=== PATIENT | female | born 1980 | race Caucasian/White ===

== ENCOUNTER 2018-02-07 00:01 | Emergency (ER) | payer OTHER, SELFPAY ==
[2018-02-07 00:03] VITALS: BP 145/122; PULSE 216; RESP 14; TEMP 36.1; O2SAT 99; BMI 24.7
--- NOTE | 2018-02-07 00:14 | EKG12_ITS ---
Test Reason : REPEAT Blood Pressure : / mmHG Vent. Rate : 104 BPM Atrial Rate : 104 BPM P-R Int : 162 ms QRS Dur : 110 ms QT Int : 336 ms P-R-T Axes : 045 051 055 degrees QTc Int : 441 ms Sinus tachycardia Otherwise normal ECG Confirmed by JIN STEVENS, JENNY ([id number]), copy editor GERRY SURESH ([id number]) on 02/09/2018 1:26:34 PM Referred By: ISHAN Confirmed By:JENNY ABDI MD
--- NOTE | 2018-02-07 00:15 | EKG12_ITS ---
Test Reason : PALPITATIONS Blood Pressure : / mmHG Vent. Rate : 215 BPM Atrial Rate : 214 BPM P-R Int : 000 ms QRS Dur : 090 ms QT Int : 212 ms P-R-T Axes : 000 053 102 degrees QTc Int : 401 ms Supraventricular tachycardia Marked ST abnormality, possible inferolateral subendocardial injury Abnormal ECG Confirmed by JIN STEVENS, JENNY ([id number]), sports editor GERRY SURESH ([id number]) on 02/09/2018 1:26:48 PM Referred By: ISHAN Confirmed By:JENNY ABDI MD
--- NOTE | 2018-02-07 00:15 | ED.VISSUMM ---
- ER Visit Summary Date of Service: 02/07/18 Chief Complaint: Palpitations History of Present Illness: The patient is a 38 F was out drinking alcohol with some friends tonight when she suddenly felt herself have racing heartbeat palpitations that feels similar to when she was in [place] last year. Started about 2 hours ago. No lightheadedness or near syncopal episodes. Mild upper chest heaviness and mild dyspnea. No recent illnesses, travel, leg pain or swelling, or injury. Physical Examination: Tachycardic over 200. Otherwise vital signs are unremarkable. Keenly alert, conversive, nontoxic and well-appearing. Lungs are clear. Equal pulses bilateral upper extremities. No calf pain/tenderness or pedal edema. Test Results: EKG consistent with narrow complex SVT at 215. No acute injury pattern. Emergency Department Course and Treatment: Regular vagal maneuver was not effective, but with modified vagal maneuver, she cardioverted without complication. Asymptomatic after cardioversion. Repeat EKG is normal with a sinus rhythm at 104 in no acute ischemic abnormalities. Observed without recurrence. Treatment Plan: Cardiology follow-up after the weekend Disposition: Discharge home Impression: Supraventricular tachycardia This note was generated with [employer] dictation software. It may contain incorrect words, spelling, and punctuation that were not noted in review of the chart prior to signing ED Disposition - Plan for ED Patient: Disposition: Home or Assisted Living Chief Complaint: Palpitations Instructions: ED Tachycardia Pat PSVT Referrals: Gerardo Morel MD [STAFF PHYSICIAN] - 5-7 Days
--- NOTE | 2018-02-07 00:19 | ED.RN ---
VAGAL MANEUVER PERFORMED BY PT HEART RATE FROM 218 TO 108.
[2018-02-07 01:02] VITALS: BP 138/74; PULSE 109; RESP 16; O2SAT 100
== END 2018-02-07 01:03 | disposition home or self-care (01) ==
PROVIDERS: Emergency Provider Emergency Medicine; Family Provider Nurse Practitioner Family; PCP Nurse Practitioner Family
DX: I47.1 Supraventricular tachycardia (principal)
CPT/HCPCS: 93005; 99282; J7030; A4216; J0153

== ENCOUNTER → 2018-02-18 15:41 | Outpatient (CLI) | payer OTHER, SELFPAY ==
[2018-02-18 16:59] LABS: Absolute Lymphocyte Count 1.58 X10^3/ul (0.83-4.51); Absolute Neutrophil Count 4.3 X10^3/uL (2.0-7.7); Basophil# 0.05 X10^3/uL; Basophil% 0.8 % (0-1); Eosinophil# 0.09 X10^3/uL; Eosinophils% 1.4 % (0-5); Hematocrit 40.5 % (37-47); Hemoglobin 13.4 g/dl (12.0-15.0); Lymphocyte # 1.58 X10^3/ul (4.0); Lymphocyte % 24.9 % (19-41); Mean Corp Hgb Conc 33.1 g/gl (32-36); Mean Corpuscular Hgb 29.5 pg (27.0-32.0); Mean Corpuscular Volume 89.2 fL (81-99); Mean Platelet Vol. 10.2 fl (6.2-12.0); Monocyte# 0.36 X10^3/uL; Monocyte% 5.7 % (0-10); Neutrophil # 4.26 X10^3/uL (2.7-7.7); Neutrophil % 67.2 % (47-70); Platelet Count 268 K/mm3 (150-450); RBC Distribution Width CV 12.8 % (11.6-14.6); RBC Distribution Width SD 41.6 fl (35.1-43.9); Red Blood Count 4.54 M/mm3 (4.2-5.4); White Blood Count 6.3 K/mm3 (4.4-11.0)
[2018-02-18 17:16] LABS: Anion Gap 6 (5-15); BUN 11 mg/dL (7-18); BUN/Creat Ratio 13.7 RATIO (10-20); Calcium,Total 9.1 mg/dL (8.5-10.1); Chloride 104 mmol/L (98-107); EST Glomerular Filtration Rate 85 mL/min (>60); Est Glom Filt Rate - Afr Amer 103 mL/min (>60); Glucose 88 mg/dL (74-106); Magnesium 2.2 mg/dL (1.6-2.6); Potassium 4.2 mmol/L (3.5-5.1); Sodium Level 138 mmol/L (136-145); Thyroid Stim Hormone (TSH) 0.66 uIU/mL (0.358-3.74)
[2018-02-18 17:19] LABS: POSITIVE COUNT NO; POSITIVE DIFFERENTIAL NO; POSITIVE MORPHOLOGY NO
== END ==
PROVIDERS: Family Provider Nurse Practitioner Family; PCP Nurse Practitioner Family; Visit Provider Internal Medicine Cardiovascular Disease
DX: I47.1 Supraventricular tachycardia (principal)
CPT/HCPCS: 36415; 80048; 83735; 84443; 85025; 93225; 93226

== ENCOUNTER 2018-12-08 15:35 | Emergency (ER) | payer OTHER, SELFPAY ==
[2018-12-08 15:36] VITALS: BP 119/71; PULSE 101; RESP 16; TEMP 36.8; O2SAT 97; BMI 20.3
--- NOTE | 2018-12-08 15:59 | RAD_ITS ---
STUDY: X-RAY CHEST REASON FOR EXAM: Female, 38 years old. Is lightheadedness. Cough. Headache. TECHNIQUE: PA and lateral views of the chest. COMPARISON: None. FINDINGS: The lungs are clear and expanded. There is no demonstrated pleural abnormality. Normal size heart. Normal mediastinum and melly. Normal visualized pulmonary arteries. Normal visualized aortic arch and descending thoracic aorta. Normal visualized thoracic spine. Normal visualized ribs, clavicles, and shoulders. There is no demonstrated abnormality of the visualized soft tissue structures of the upper abdomen. RAD/Chest PA and Lateral IMPRESSION: Normal x-ray examination of the chest. Electronically Signed: Jose David Patterson DO at 16:28 EST Tel [phone], Service support ,
[2018-12-08] MEDS: Ondansetron ODT 4 MG Tablet PO (16:05)
--- NOTE | 2018-12-08 16:17 | ED.VISSUMM ---
- ER Visit Summary Date of Service: 12/08/18 Chief Complaint: Generalized illness History of Present Illness: The patient is a 38 F presenting for evaluation secondary to generalized illness. Patient reports that over the course the last 3 days she has had generalized body aches cough nausea vomiting diarrhea and sore throat. Patient reports that she saw her primary care physician yesterday who did a strep swab and a flu swab both of which were negative. She reports that he put her on Tamiflu anyway. She states that she got 2 doses down yesterday, and today she started to have nausea and vomiting. She feels that she is getting somewhat dehydrated. She denies any lung problems or smoking. She denies any sick contacts or recent travel. Review of systems otherwise negative. Physical Examination: Vital signs are within normal limits, patient is afebrile. General: Patient is well-nourished well-developed and in no acute distress. Head: Normocephalic, atraumatic Eyes: Pupils equal round and reactive bilaterally, extra occular motion intact bialterally ENT: Moist mucous membranes, mild posterior pharyngeal erythema without any evidence of exudate posterior fullness or asymmetry Neck: Supple, mild anterior lymphadenopathy, no JVD, no meningismus CVS: Heart regular rate and rhythm, no murmurs, rubs or gallops, radial pulses 2+ bilaterally Resp: Respirations nondistressed, lung sounds clear bilaterally Abdomen: Soft, nontender, nondistended, no palpable masses, normal bowel sounds Back: Nontender Extremities: Nontender, atraumatic, active full range of motion, no peripheral edema Skin: warm, no rashes, no petechia Neuro: Alert and oriented x 4, CN 2-12 intact, no lateralizing neurological defecits Psyc: Normal affect Test Results: CXR normal, rapid strep was positive Emergency Department Course and Treatment: Patient presented secondary to generalized illness. A chest x-ray was negative flu swab was positive. Patient was treated with Zofran and passed p.o. challenge. She was given Tylenol for generalized aches. Patient was given Bicillin for treatment of her strep throat, she will be discharged with a course of Zofran. Disposition: Discharge Impression: 1. Strep pharyngitis This note was generated with [employer] dictation software. It may contain incorrect words, spelling, and punctuation that were not noted in review of the chart prior to signing ED Disposition - Plan for ED Patient: Disposition: Home or Assisted Living Chief Complaint: General Illness Diagnosis: Strep pharyngitis Instructions: ED Strep Pharyngitis Conf Prescriptions: Ondansetron [Zofran Odt] 4 mg PO Q8H PRN PRN #10 tab PRN Reason: Nausea Referrals: Cinthia Gusman, GRAIN FARMER-C [NON-STAFF] - 1 Week if not improving
--- NOTE | 2018-12-08 16:21 | ED.DCSUM_ITS ---
- ER Visit Summary Date of Service: 12/08/18 Chief Complaint: Generalized illness History of Present Illness: The patient is a 38 F presenting for evaluation secondary to generalized illness. Patient reports that over the course the last 3 days she has had generalized body aches cough nausea vomiting diarrhea and sore throat. Patient reports that she saw her primary care physician yesterday who did a strep swab and a flu swab both of which were negative. She reports that he put her on Tamiflu anyway. She states that she got 2 doses down yesterday, and today she started to have nausea and vomiting. She feels that she is getting somewhat dehydrated. She denies any lung problems or smoking. She denies any sick contacts or recent travel. Review of systems otherwise negative. Physical Examination: Vital signs are within normal limits, patient is afebrile. General: Patient is well-nourished well-developed and in no acute distress. Head: Normocephalic, atraumatic Eyes: Pupils equal round and reactive bilaterally, extra occular motion intact bialterally ENT: Moist mucous membranes, mild posterior pharyngeal erythema without any evidence of exudate posterior fullness or asymmetry Neck: Supple, mild anterior lymphadenopathy, no JVD, no meningismus CVS: Heart regular rate and rhythm, no murmurs, rubs or gallops, radial pulses 2+ bilaterally Resp: Respirations nondistressed, lung sounds clear bilaterally Abdomen: Soft, nontender, nondistended, no palpable masses, normal bowel sounds Back: Nontender Extremities: Nontender, atraumatic, active full range of motion, no peripheral edema Skin: warm, no rashes, no petechia Neuro: Alert and oriented x 4, CN 2-12 intact, no lateralizing neurological defecits Psyc: Normal affect Test Results: CXR normal, rapid strep was positive Emergency Department Course and Treatment: Patient presented secondary to generalized illness. A chest x-ray was negative flu swab was positive. Patient was treated with Zofran and passed p.o. challenge. She was given Tylenol for generalized aches. Patient was given Bicillin for treatment of her strep throat, she will be discharged with a course of Zofran. Disposition: Discharge Impression: 1. Strep pharyngitis This note was generated with [employer] dictation software. It may contain incorrect words, spelling, and punctuation that were not noted in review of the chart p rior to signing ED Disposition - Plan for ED Patient: Disposition: Home or Assisted Living Chief Complaint: General Illness Diagnosis: Strep pharyngitis Instructions: ED Strep Pharyngitis Conf Prescriptions: Ondansetron [Zofran Odt] 4 mg PO Q8H PRN PRN #10 tab PRN Reason: Nausea Referrals: Cinthia Gusman, L[employer] VISION THERAPIST-C [NON-STAFF] - 1 Week if not improving
[2018-12-08] MEDS: Acetaminophen 500 MG Tablet 1000 MG PO (16:28)
[2018-12-08] MEDS: Penicillin G Benzathine 1.2 MU/2 ML Syringe IM (16:54)
[2018-12-08 17:16] VITALS: TEMP 37.2
--- OUTSIDE RECORDS SUMMARY | 2019-02-09 18:46 | XMS RPT_ITS ---
:1980 Author Organization OHIP Support Name Relationship Address Phone TAMAR Unavailable [address] + [place] [address] VERONIQUE YOUNG Unavailable Unavailable + [place] [address] BOGCO Unavailable [address] + [place] [address] TONIO MANDEL Unavailable [address] + [place] [address] MINISTERIOPHAMQUETA Unavailable [place] [address] VERONIQUE YOUNG Unavailable [address] [place] [address] VERONIQUE YOUNG Unavailable [address] [place] [place] [address] TONIO MANDEL Unavailable Unavailable + MINISTERIO QUETA Unavailable Un[place] [address] BOGCO Unavailable [address] + [place] [address] TONIO MANDEL Unavailable [address] + [place] [address] BOGCO Unavailable [address] + [place] [address] TONIO MANDEL Unavailable [address] + [place] [address] BOGCO Unavailable [address] + [place] [address] TONIO MANDEL Unavailable [address] + [place] [address] BOGCO Unavailable [address] + [place] [address] TONIO MANDEL Unavailable [address] + [place] [address] BOGCO Unavailable [address] + [place] [address] TONIO MANDEL Unavailable [address] [facility] + [place] [address] Care Team Providers Name Role Phone IZZY ORTA Admitting Unavailable IZZY ORTA Attending Unavailable ADRIEL, GERARDO S Referring Unavailable MARCH, EDDA E Attending Unavailable SELF, SELF Referring Unavailable MARIA DE JESUS GRAY Primary Care Unavailable MARIA DE JESUS GRAY Attending Unavailable MELLISSA CARY Attending Unavailable JOSIE HILTON Attending Unavailable Referred, Self Attending Unavailable [facility] ATTORNEY, Cinthia Primary Care Unavailable Lewis Barger Attending Unavailable Darion Hernandez Primary Care Unavailable Adriel, [place] Attending Unavailable [facility] C[facility] ATTORNEY, Cinthia Referring Unavailable [facility] HE[facility] CARE ATTORNEY, Cinthia Primary Care Unavailable LAYA OLMSTEAD Attending Unavailable Adriel, Gerardo Attending Unavailable [facility] C[facility] ATTORNEY, Cinthia Referring Unavailable [facility] C[facility] ATTORNEY, Cinthia Primary Care Unavailable Adriel, [place] Attending Unavailable [facility] C[facility] ATTORNEY, Cinthia Primary Care Unavailable Adriel, [place] Referring Unavailable Adriel, Gerardo Attending Unavailable PROBLEMS PROBLEMS DATE TYPE CONDITION / CODE ATTENDING STATUS SOURCE 08/10/2018 Admitting Supraventricular MARCH, EDDA Raymundo Active [facility] diagnosis tachycardia / University I47.1(ICD-10) [facility] Repository 02/18/2018 Unknown I47.1 - Adriel, Gerardo Active [facility] tachycardia / Hospital I47.1(ICD-10) Repository PROCEDURES PROCEDURES No Procedure Records FoundRESULTS RESULTS PROGRESS Observed: 12/10/2018 Status: COMPLETED Source: [place] 8:39 AM [facility] REPOSITORY HNO ID: [id number] Author: Josie Hilton Service: (none) Author Type: Physician Type: Progress Notes Filed: 12/10/2018 9:22 AM Note Text: Queta Mandel is a 38 year old who presents for her annual gynecologic exam without complaints. Menses: cycles every 28-30 days and 4-5 days of flow. 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 She has 3 children. Her oldest is in 3rd grade at [employer]. 2nd child will start there next year. 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 No bloating, early satiety, indigestion, or increased flatulence. Bladder: No dysuria, gross hematuria, urinary frequency, urinary urgency, or incontinence. Breast: No breast lumps, nipple d/c, overlying skin changes, redness or skin retraction. Allergies and current medication updated:Yes EXAM: There were no vitals taken for this visit. GENERAL: pleasant, female in no apparent distress BREAST: soft, non-tender, symmetric, no dominant mass, normal nipple-areolar complex, no lymphadenopathy and no nipple discharge CHEST: Normal inspiratory effort ABDOMEN: soft, non-tender and no masses PELVIC: external genitalia normal, normal Bartholin's glands, urethra, [place]'s glands, no vulvar lesions, no cervical lesions, good vaginal support, physiologic discharge present, normal appearing perineal body and perianal region BIMANUAL: uterus normal size, shape and consistency, no adnexal masses and non-tender RECTOVAGINAL: deferred. NEURO: alert and oriented x3,exam grossly non-focal EXTREMITIES: normal ASSESSMENT/PLAN: 1) Health maintenance: Pap done with HPV. Mammogram starting age 40. Nutrition, exercise and routine health maintenance exams reviewed. 2) Contraception: tubal ligation. 3) Follow up one year or sooner as needed Josie Hilton MD CNOV Observed: 12/10/2018 Status: COMPLETED Source: [place] 8:35 AM [facility] REPOSITORY Office Visit ([facility]) QUETA MANDEL ([id number]) 1980 F Date Time Provider Department 12/10/18 8:35 AM JOSIE HILTON During your visit today, we recorded the following information about you: Blood pressure Weight Height Last Period 61.3 kg 1.676 m 11/30/18 Josie Hilton MD 12/10/2018 9:22 AM Signed Quetalissa Mandel is a 38 year old who presents for her annual gynecologic exam without complaints. Menses: cycles every 28-30 days and 4-5 days of flow. 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 She has 3 children. Her oldest is in 3rd grade at [employer]. 2nd child will start there next year. 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 No bloating, early satiety, indigestion, or increased flatulence. Bladder: No dysuria, gross hematuria, urinary frequency, urinary urgency, or incontinence. Breast: No breast lumps, nipple d/c, overlying skin changes, redness or skin retraction. Allergies and current medication updated:Yes EXAM: There were no vitals taken for this visit. GENERAL: pleasant, female in no apparent distress BREAST: soft, non-tender, symmetric, no dominant mass, normal nipple-areolar complex, no lymphadenopathy and no nipple discharge CHEST: Normal inspiratory effort ABDOMEN: soft, non-tender and no masses PELVIC: external genitalia normal, normal Bartholin's glands, urethra, [place]'s glands, no vulvar lesions, no cervical lesions, good vaginal support, physiologic discharge present, normal appearing perineal body and perianal region BIMANUAL: uterus normal size, shape and consistency, no adnexal masses and non-tender RECTOVAGINAL: deferred. NEURO: alert and oriented x3,exam grossly non-focal EXTREMITIES: normal ASSESSMENT/PLAN: 1) Health maintenance: Pap done with HPV. Mammogram starting age 40. Nutrition, exercise and routine health maintenance exams reviewed. 2) Contraception: tubal ligation. 3) Follow up one year or sooner as needed Josie Hilton MD Referring Provider: SELF [[id number]] Allergies As of Date: 12/10/2018 Noted Allergy Reaction SULFA (SULFONAMIDE ANTIBIOTICS) 09/25/2010 16 - Unknown Date Reviewed: 12/10/2018 Reviewed by: Josie Hilton - Fully Assessed Reason for Visit: Well Woman [[id number]] Primary Visit Diagnosis:Encounter for gynecological examination (general) (routine) without abnormal findings [Z01.419] Other Visit Diagnoses:Screening for cervical cancer [Z12.4] Encounter for screening for human papillomavirus (HPV) [Z11.51] Order(s):PAP FLUID CERVICAL SCREENING [2308244] Order #: [id number] Prescriptions as of 12/10/2018 Sig: ACYCLOVIR 400 MG TABLET Take 1 tablet by mouth twice * Problem List As Of Date 12/10/2018 Noted Resolved Depression [F32.9] INVALID FOR* SARBJIT (generalized anxiety disorder) [F41.1] INVALID FOR* SVT (supraventricular tachycardia) (HCC) [I47.1]INVALID FOR* More... Medications Discontinued During This Encounter sertraline (ZOLOFT) 50 mg tablet 45 t* 3 06/09/2018 12/10/2018 Route: ORAL Sig: Take 1 tablet by mouth once daily. Patient not taking: Reported on 12/10/2018 Disc: Reason for discontinue is not on file. hydrOXYzine HCl (ATARAX) 25 mg tablet 45 t* 1 06/09/2018 12/10/2018 Route: ORAL Sig: Take 1 tablet by mouth every 4 hours as needed. Patient not taking: Reported on 12/10/2018 Disc: Reason for discontinue is not on file. fluticasone (FLONASE) 50 mcg/actuati* 1 Angel* 0 12/30/2017 12/10/2018 Route: EACH NOSTRIL Sig: Use 2 Sprays in each nostril once daily. Rinse mouth after use. Patient not taking: Reported on 07/29/2018 Disc: Reason for discontinue is not on file. meclizine (ANTIVERT) 25 mg tab 12 t* 0 12/30/2017 12/10/2018 Route: ORAL Sig: Take 1 tablet by mouth every 6 hours as needed (dizziness). Patient not taking: Reported on 07/29/2018 Disc: Reason for discontinue is not on file. Disposition: Return in 1 year (on 12/10/2019) for Annual Exam. Follow-up and Disposition History Recorded Encounter Status:Closed by JOSIE HILTON MD on 12/10/18 HPV W/GENOTYPE Collected: 12/10/2018 Status: F Source: [place] 3:29 AM [facility] REPOSITORY TYPE CODE TESTS RESULT OUT OF RANGE REFERENCE UNITS LAB HPVT16 Abnormal HPV HighRisk Positive for Alert Type 16 HPV DNA high risk type 16 by PCR LAB HPVT18 HPV HighRisk Negative for Type 18 HPV DNA high risk type 18 by PCR. LAB HPVHRO HPV HighRisk Negative for Other HPV DNA high risk types: 31,33,35,39,4 5,51,52,56,58 ,59,66,68 by PCR. Result Comment: This test was developed and its performance characteristics determined by [facility] [place] ([facility]). It has not been cleared or approved by the FDA. -[facility] is regulated under CLIA as qualified to perform high-complexity testing. This test is used for clinical purposes. It should not be regarded as inv estigational or for research. Performed By: #### HPVHRR #### [facility] [address] [place], [place] [address] EMERGENCY DEPARTMENT Observed: 12/09/2018 Status: F Source: [place] SUMMARY 12:14 AM [facility] REPOSITORY [facility] Medical Records Department [address] [place] [address] Emergency Department Summary 12/08/18 1617 MR#: [id number] Acct: [id number] Name: QUETA MANDEL Rep #: [id number] : 1980 38 From: Lewis Barger MD PCP: Darion Hernandez MD Status: DEP ER - ER Visit Summary Date of Service: 12/08/18 Chief Complaint: Generalized illness History of Present Illness: The patient is a 38 F presenting for evaluation secondary to generalized illness. Patient reports that over the course the last 3 days she has had generalized body aches cough nausea vomiting diarrhea and sore throat. Patient reports that she saw her primary care physician yesterday who did a strep swab and a flu swab both of which were negative. She reports that he put her on Tamiflu anyway. She states that she got 2 doses down yesterday, and today she started to have nausea and vomiting. She feels that she is getting somewhat dehydrated. She denies any lung problems or smoking. She denies any sick contacts or recent travel. Review of systems otherwise negative. Physical Examination: Vital signs are within normal limits, patient is afebrile. General: Patient is well-nourished well-developed and in no acute distress. Head: Normocephalic, atraumatic Eyes: Pupils equal round and reactive bilaterally, extra occular motion intact bialterally ENT: Moist mucous membranes, mild posterior pharyngeal erythema without any evidence of exudate posterior fullness or asymmetry Neck: Supple, mild anterior lymphadenopathy, no JVD, no meningismus CVS: Heart regular rate and rhythm, no murmurs, rubs or gallops, radial pulses 2+ bilaterally Resp: Respirations nondistressed, lung sounds clear bilaterally Abdomen: Soft, nontender, nondistended, no palpable masses, normal bowel sounds Back: Nontender Extremities: Nontender, atraumatic, active full range of motion, no peripheral edema Skin: warm, no rashes, no petechia Neuro: Alert and oriented x 4, CN 2-12 intact, no lateralizing neurological defecits Psyc: Normal affect Test Results: CXR normal, rapid strep was positive Emergency Department Course and Treatment: Patient presented secondary to generalized illness. A chest x-ray was negative flu swab was positive. Patient was treated with Zofran and passed p.o. challenge. She was given Tylenol for generalized aches. Patient was given Bicillin for treatment of her strep throat, she will be discharged with a course of Zofran. Disposition: Discharge Impression: 1. Strep pharyngitis This note was generated with [employer] dictation software. It may contain incorrect words, spelling, and punctuation that were not noted in review of the chart prior to signing ED Disposition - Plan for ED Patient: Disposition: Home or Assisted Living Chief Complaint: General Illness Diagnosis: Strep pharyngitis Instructions: ED Strep Pharyngitis Conf Prescriptions: Ondansetron [Zofran Odt] 4 mg PO Q8H PRN PRN #10 tab PRN Reason: Nausea Referrals: Cinthia Gusman, [facility] [NON-STAFF] - 1 Week if not improving What to do if you have Problems For any increased pain, shortness of breath, bleeding, nausea or vomiting, chest pain, or any unexpected problems, contact your Primary Care Provider. Call [facility] ([phone]) or report to the closest Emergency Room. Call 911 if necessary. 12/09/18 0014 <Electronically signed by Lewis Barger MD> Date Lewis Barger MD Cosigner Signature (If Indicated): Date CC: Darion Hernandez MD Observed: 12/08/2018 Status: F Source: [place] STREP A (THROAT 4:05 PM [facility] RAPID RIRI) REPOSITORY Order Date: 12/08/18 CRITICAL VALUE VERIFIED. CALLED TO Sandra SHANKAR 12/08/18 [address]s. RESULTS READ BACK BY Sandra SHANKAR . Strep A Rapid Rapid Strep A Screen POSITIVE A Disk (Conf. Cult) Test Not Performed : All NEGATIVE screens will be confirmed with a culture. ORGANISM 1: Streptococcus group A Performed By: #### [id number] #### [facility] [address] [place], [address] CHEST PA AND LATERAL Observed: 12/08/2018 Status: F Source: [place] 4:00 PM [facility] REPOSITORY [facility] Imaging Services [address] [place] [address] Chest PA and Lateral MR#: [id number] Acct: [id number] Name: QUETA MANDEL Rep #: [id number] : 1980 F 38 From: Jose David Patterson DO PCP: Darion Hernandez MD Status: REG ER Study: Chest PA and Lateral Date of Exam: 12/08/18 Exam# [id number] Ordering Dr: Lewis Barger MD STUDY: X-RAY CHEST REASON FOR EXAM: Female, 38 years old. Is lightheadedness. Cough. Headache. TECHNIQUE: PA and lateral views of the chest. COMPARISON: None. FINDINGS: The lungs are clear and expanded. There is no demonstrated pleural abnormality. Normal size heart. Normal mediastinum and melly. Normal visualized pulmonary arteries. Normal visualized aortic arch and descending thoracic aorta. Normal visualized thoracic spine. Normal visualized ribs, clavicles, and shoulders. There is no demonstrated abnormality of the visualized soft tissue structures of the upper abdomen. RAD/Chest PA and Lateral IMPRESSION: Normal x-ray examination of the chest. Electronically Signed: Jose David Patterson DO at 16:28 EST Tel [phone], Service support , CC: Darion Hernandez MD; Lewis Barger Linux Vmware Administrator: Signed PROGRESS Observed: 07/29/2018 Status: COMPLETED Source: [place] 9:35 [facility] REPOSITORY HNO ID: [id number] Author: Mellissa Cary Service: (none) Author Type: Physician Type: Progress Notes Filed: 07/29/2018 12:56 PM Note Text: I have confirmed and edited as necessary, the PFSH and ROS obtained by others. Examined patient and confirmed zuluaga findings on history and examination and ROS as noted by Nathan Nelson above. Summary of my findings and impressions are as follows: Denies nausea,vtg. No flank pain on percussion. pest of HPI, ROS and PE as per MS noted with no changes. A/P ASSESSMENT/PLAN: 1. Dysuria - ICD9: 788.1, ICD10: R30.0 (primary diagnosis) acute - Patient education for prevention given - UA DIP B/O 2. Urinary tract infection without hematuria, site unspecified - ICD9: 599.0, ICD10: N39.0 acute - UA positive for jennifer esterase - Begin treatment with Macrobid 100 mg BID for 7 days - Patient education for prevention given Advised on fluids. To call if gets a yeast infection. Mellissa Cary MD PROGRESS Observed: 07/29/2018 Status: COMPLETED Source: [place] 9:16 AM [facility] REPOSITORY HNO ID: [id number] Author: Nathan Vee MI Service: (none) Author Type: (none) Type: Progress Notes Filed: 07/29/2018 12:56 PM Note Text: Chief Complaint Patient presents with: UTI: urgency AND discomfort with urination, since last night HPI Queta Mandel is a 38 year old female who presents here today for Acute onset of dysuria and urinary frequency. Pt complains of urinary urgency and dysuria starting ~2 weeks ago. No hematuria. Pt used vspa-gyd-imtrcoc AZO, which seemed to provide temporary relief. Sxs returned yesterday. Pt reports hot and cold chills starting this morning. No fevers. No vaginal discharge or itching. Pt with distant hx of UTI, treated successfully with antibiotics in the past. Past medical history, appointments, medications, allergies reviewed. Previous Medical History PAST MEDICAL HISTORY Diagnosis Date - Anxiety - Panic attacks - SVT (supraventricular tachycardia) (HCC) Previous Surgical History PAST SURGICAL HISTORY Procedure Laterality Date - ABLATION due SVT's - BREAST BIOPSY HX - PAST SURGICAL HISTORY OF Right breast biopsy ( benign) - TUBAL LIGATION HX 2014 Family History FAMILY HISTORY Problem Relation Age of Onset - Diabetes Maternal Grandmother - Cancer Maternal Grandfather lung - Prostate Cancer Paternal Grandfather - other (Other) Other No breast/plant maintenance mechanic/colon cancer Patient Allergies ALLERGIES Allergen Reactions - Sulfa (Sulfonamide * Unknown - Zithromax [Azithrom* GI Upset Current Medications Current Outpatient Prescriptions on File Prior to Visit: hydrOXYzine HCl (ATARAX) 25 mg tablet Take 1 tablet by mouth every 4 hours as needed. sertraline (ZOLOFT) 50 mg tablet Take 1 tablet by mouth once daily. acyclovir (ZOVIRAX) 400 mg tablet Take 1 tablet by mouth twice daily. fluticasone (FLONASE) 50 mcg/actuation nasal spray Use 2 Sprays in each nostril once daily. Rinse mouth after use. (Patient not taking: Reported on 07/29/2018 ) meclizine (ANTIVERT) 25 mg tab Take 1 tablet by mouth every 6 hours as needed (dizziness). (Patient not taking: Reported on 07/29/2018 ) BENZONATATE (TESSALON ORAL) Take by mouth. dicyclomine (BENTYL) 10 mg capsule Take 1 capsule by mouth four times daily as needed (stomach cramping). LORAZEPAM ORAL Take by mouth. albuterol HFA (VENTOLIN HFA) 90 mcg/actuation inhaler Inhale 2 Puffs as instructed every 4 hours as needed for Wheezing/Shortness of Breath (persistent cough). codeine-guaiFENesin (ROBITUSSIN AC) 10-100 mg/5 mL syrup Take 5-10 mL by mouth four times daily as needed for Cough. May cause drowsiness. guaiFENesin (MUCINEX) 600 mg 12 hr tablet Take 2 tablets by mouth twice daily. benzonatate (TESSALON PERLE) 100 mg capsule Take 1 capsule by mouth three times daily as needed. ACETAMINOPHEN (TYLENOL ORAL) Take by mouth. No current facility-administered medications on file prior to visit. 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 General Appearance: Well appearing, alert, in no acute distress, well-hydrated, well nourished.. Back:No CVA tenderness. good range of motion, no muscle tenderness, no evidence of scoliosis Lungs: Lungs clear to auscultation. No wheezing, rhonchi, rales. Heart: RRR without murmur, gallop, or rubs. No ectopy. Abdomen: Normal abdominal exam, Abdomen soft, mild suprapubic tenderness. No masses, organomegaly. Health Maintenance List DTAP,TDAP,TD(1 - Tdap) due on 01/30/2000 PAP EVERY 5 YEARS due on 2011 HPV EVERY 5 YEARS due on 2011 INFLUENZA(1) due on 07/17/2018 Data reviewed A/P ASSESSMENT/PLAN: 1. Dysuria - ICD9: 788.1, ICD10: R30.0 (primary diagnosis) acute - UA positive for jennifer esterase and hematuria - Begin treatment with Macrobid 100mg BID for 7 days - Patient education for prevention given - Stay hydrated, can drink cranberry juice and continue OTC Azo. - UA DIP B/O 2. Urinary tract infection without hematuria, site unspecified - ICD9: 599.0, ICD10: N39.0 acute Plan as above Nathan Vee CNOV Observed: 07/29/2018 Status: COMPLETED Source: [place] 8:40 AM [facility] RE[facility]IT[facility] ([id number]) 1980 F Date Time Provider Department 07/29/18 8:40 AM MELLISSA CARY During your visit today, we recorded the following information about you: Temperature Pulse Respiration Blood pressure 98.1 degrees 60/minute 16/minute 100/78 Weight Last Period 64.4 kg 07/08/18 Nathan Vee MS 07/29/2018 12:56 PM Signed Chief Complaint Patient presents with: UTI: urgency AND discomfort with urination, since last night HPI Queta Mandel is a 38 year old female who presents here today for Acute onset of dysuria and urinary frequency. Pt complains of urinary urgency and dysuria starting ~2 weeks ago. No hematuria. Pt used osgq-nyx-mpbjiaw AZO, which seemed to provide temporary relief. Sxs returned yesterday. Pt reports hot and cold chills starting this morning. No fevers. No vaginal discharge or itching. Pt with distant hx of UTI, treated successfully with antibiotics in the past. Past medical history, appointments, medications, allergies reviewed. 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 sertraline (ZOLOFT) 50 mg tablet Take 1 tablet by mouth once daily. acyclovir (ZOVIRAX) 400 mg tablet Take 1 tablet by mouth twice daily. fluticasone (FLONASE) 50 mcg/actuation nasal spray Use 2 Sprays in each nostril once daily. Rinse mouth after use. (Patient not taking: Reported on 07/29/2018 ) meclizine (ANTIVERT) 25 mg tab Take 1 tablet by mouth every 6 hours as needed (dizziness). (Patient not taking: Reported on 07/29/2018 ) BENZONATATE (TESSALON ORAL) Take by mouth. dicyclomine (BENTYL) 10 mg capsule Take 1 capsule by mouth four times daily as needed (stomach cramping). LORAZEPAM ORAL Take by mouth. albuterol HFA (VENTOLIN HFA) 90 mcg/actuation inhaler Inhale 2 Puffs as instructed every 4 hours as needed for Wheezing/Shortness of Breath (persistent cough). codeine-guaiFENesin (ROBITUSSIN AC) 10-100 mg/5 mL syrup Take 5-10 mL by mouth four times daily as needed for Cough. May cause drowsiness. guaiFENesin (MUCINEX) 600 mg 12 hr tablet Take 2 tablets by mouth twice daily. benzonatate (TESSALON PERLE) 100 mg capsule Take 1 capsule by mouth three times daily as needed. ACETAMINOPHEN (TYLENOL ORAL) Take by mouth. No current facility-administered medications on file prior to visit. 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 General Appearance: Well appearing, alert, in no acute distress, well-hydrated, well nourished.. Back:No CVA tenderness. good range of motion, no muscle tenderness, no evidence of scoliosis Lungs: Lungs clear to auscultation. No wheezing, rhonchi, rales. Heart: RRR without murmur, gallop, or rubs. No ectopy. Abdomen: Normal abdominal exam, Abdomen soft, mild suprapubic tenderness. No masses, organomegaly. Health Maintenance List DTAP,TDAP,TD(1 - Tdap) due on 01/30/2000 PAP EVERY 5 YEARS due on 2011 HPV EVERY 5 YEARS due on 2011 INFLUENZA(1) due on 07/17/2018 Data reviewed A/P ASSESSMENT/PLAN: 1. Dysuria - ICD9: 788.1, ICD10: R30.0 (primary diagnosis) acute - UA positive for jennifer esterase and hematuria - Begin treatment with Macrobid 100mg BID for 7 days - Patient education for prevention given - Stay hydrated, can drink cranberry juice and continue OTC Azo. - UA DIP B/O 2. Urinary tract infection without hematuria, site unspecified - ICD9: 599.0, ICD10: N39.0 acute Plan as above Nathan Vee MS Mellissa Cary MD 07/29/2018 12:56 PM Signed I have confirmed and edited as necessary, the PFSH and ROS obtained by others. Examined patient and confirmed zuluaga findings on history and examination and ROS as noted by Nathan Nelson above. Summary of my findings and impressions are as follows: Denies nausea,vtg. No flank pain on percussion. pest of HPI, ROS and PE as per MS noted with no changes. A/P ASSESSMENT/PLAN: 1. Dysuria - ICD9: 788.1, ICD10: R30.0 (primary diagnosis) acute - Patient education for prevention given - UA DIP B/O 2. Urinary tract infection without hematuria, site unspecified - ICD9: 599.0, ICD10: N39.0 acute - UA positive for jennifer esterase - Begin treatment with Macrobid 100 mg BID for 7 days - Patient education for prevention given Advised on fluids. To call if gets a yeast infection. Mellissa Cary MD Referring Provider: SELF [[id number]] Allergies As of Date: 07/29/2018 Noted Allergy Reaction SULFA (SULFONAMIDE ANTIBIOTICS) 09/25/2010 16 - Unknown ZITHROMAX (AZITHROMYCIN) 09/25/2010 8 - GI Upset Date Reviewed: 07/29/2018 Reviewed by: Lilia Ozuna LPN - Fully Assessed Reason for Visit: UTI [116] Cmt: urgency AND discomfort with urination, since last night Primary Visit Diagnosis:Dysuria [R30.0] Other Visit Diagnosis:Urinary tract infection without hematuria, site unspecified [N39.0] Order(s):UA DIP B/O [[id number]] Order #: [id number] nitrofurantoin monohydrate and macrocrystal (MACROBID) 100 mg capsuleTake 1 capsule by mouth twice daily with meals for 7 days.Disp: 14 capsuleRfl: 0 Prescriptions as of 07/29/2018 Sig: HYDROXYZINE HCL 25 MG TABLET Take 1 tablet by mouth every * SERTRALINE 50 MG TABLET Take 1 tablet by mouth once d* ACYCLOVIR 400 MG TABLET Take 1 tablet by mouth twice * NITROFURANTOIN MONOHYDRATE AND * Take 1 capsule by mouth twice* FLUTICASONE 50 MCG/ACTUATION * Use 2 Sprays in each nostril * Patient not taking: Reported on 07/29/2018 MECLIZINE 25 MG TABLET Take 1 tablet by mouth every * Patient not taking: Reported on 07/29/2018 Problem List As Of Date 07/29/2018 Noted Resolved Depression [F32.9] INVALID FOR* SARBJIT (generalized anxiety disorder) [F41.1] INVALID FOR* SVT (supraventricular tachycardia) ([facility]) [I47.1]INVALID FOR* More... Prescriptions ordered this encounter Disp Refills Start End NITROFURANTOIN MONOHYDRATE AND MACROCR* 14 c* 0 07/29/2018 08/05/2018 Route: ORAL Sig: Take 1 capsule by mouth twice daily with meals for 7 days. Medications Discontinued During This Encounter BENZONATATE (TESSALON ORAL) 07/29/2018 Class: Historical Med Route: ORAL Sig: Take by mouth. Disc: Course of therapy completed dicyclomine (BENTYL) 10 mg capsule 20 c* 0 02/13/2017 07/29/2018 Route: ORAL Sig: Take 1 capsule by mouth four times daily as needed (stomach cramping). Disc: Course of therapy completed LORAZEPAM ORAL 07/29/2018 Class: Historical Med Route: ORAL Sig: Take by mouth. Disc: Course of therapy completed albuterol HFA (VENTOLIN HFA) 90 mcg/* 1 In* 0 12/04/2016 07/29/2018 Class: Print RX Route: INHALATION Sig: Inhale 2 Puffs as instructed every 4 hours as needed for Wheezing/Shortness of Breath (persistent cough). Disc: Course of therapy completed codeine-guaiFENesin (ROBITUSSIN AC) * 120 * 0 12/04/2016 07/29/2018 Class: Print RX Route: ORAL Sig: Take 5-10 mL by mouth four times daily as needed for Cough. May cause drowsiness. Disc: Course of therapy completed guaiFENesin (MUCINEX) 600 mg 12 hr t* 30 t* 0 11/29/2016 07/29/2018 Route: ORAL Sig: Take 2 tablets by mouth twice daily. Disc: Course of therapy completed benzonatate (TESSALON PERLE) 100 mg * 60 c* 0 11/29/2016 07/29/2018 Route: ORAL Sig: Take 1 capsule by mouth three times daily as needed. Disc: Course of therapy completed ACETAMINOPHEN (TYLENOL ORAL) 07/29/2018 Class: Historical Med Route: ORAL Sig: Take by mouth. Disc: Course of therapy completed Disposition: Return if symptoms worsen or fail to improve. Follow-up and Disposition History Recorded Letter Text July 29, 2018 TO WHOM IT MAY CONCERN: This is to certify that Ms. Queta Mandel has been under my care for UTI and was unable to work from 07/29/2018 through 07/29/2018. Ms. Mandel may return to work on 07/30/2018 without restrictions. Sincerely yours, Mellissa Cary MD Encounter Status:Closed by MELLISSA CARY on 07/29/18 PROGRESS Observed: 06/09/2018 Status: COMPLETED Source: [place] 4:36 PM [facility] [place] REPOSITORY HNO ID: [id number] Author: Maria De Jesus Gray Service: (none) Author Type: Physician Type: Progress Notes Filed: 06/09/2018 5:30 PM Note Text: Reason for Visit Patient presents with: Establish Care: establish care Queta Mandel is a 38 year old female who presents here today for Above Complaints.. Health Maintenance DTAP,TDAP,TD(1 - Tdap) PAP EVERY 5 YEARS HPV EVERY 5 YEARS HPI Going through a divorce, stressed out, she was started on wellbutrin, but did not like it, she was on cymbalta prior to that. She does feel like she needs something to help her out feels panicked on and off. Has episodes where she feels panicked, all the time when she wakes up , living with her ex due to financial restraints. She is sleeping on the couch a lot. She has a lot of anxiety but not much of depression. Has diarrhea from soft stool. She has seen a therapist for helping her. [place] - had taken adenosine in the past No problem-specific Assessment AND Plan notes found for this encounter. 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 Pertinent Lab/Diagnostic Studies are reviewed and discussed today Current Outpatient Prescriptions: - buPROPion SR (ZYBAN SR; WELLBUTRIN SR) 150 mg 12 hr tablet - fluticasone (FLONASE) 50 mcg/actuation nasal spray - meclizine (ANTIVERT) 25 mg tab - PAROXETINE HCL (PAXIL ORAL) - BENZONATATE (TESSALON ORAL) - dicyclomine (BENTYL) 10 mg capsule - LORAZEPAM ORAL - albuterol HFA (VENTOLIN HFA) 90 mcg/actuation inhaler - codeine-guaiFENesin (ROBITUSSIN AC) 10-100 mg/5 mL syrup - PARoxetine (PAXIL) 40 mg tablet - guaiFENesin (MUCINEX) 600 mg 12 hr tablet - benzonatate (TESSALON PERLE) 100 mg capsule - ACETAMINOPHEN (TYLENOL ORAL) Review of Systems CONSTITUTIONAL: No fevers, chills night sweats, unintended weight loss CARDIOVASCULAR: No chest pain, dyspnea, palpitations, orthopnea, PND, ankle edema. PULM: No dyspnea, unexplained cough. GI: No dysphagia/odynophagia, problematic reflux, constipation, diarrhea, changes in stool habits, hematochezia, melena. : No new urinary complaints, including dysuria, gross hematuria or pyuria. NEURO: No new balance problems, peripheral weakness/paresthesias or numbness of concern. Physical Exam BP 128/70 (BP Site: Left Arm, BP Position: Sitting, BP Cuff Size: Regular Adult) Pulse 88 Resp 12 Ht 170.2 cm (5' 7) Wt 67.6 kg (149 lb) LMP 05/25/2018 (Approximate) SpO2 99% BMI 23.34 kg/m? General appearance: Well appearing, alert, in no acute distress, well nourished. Skin: Skin color, texture, turgor normal, no suspicious rashes or lesions Head: Normocephalic, no masses, lesions, tenderness or abnormalities Eyes: Anicteric sclera. Pupils are equally round and reactive to light. Extraocular movements are intact. Lungs: Lungs clear to auscultation. No wheezing, rhonchi, rales Heart: RRR without murmur, gallop, or rubs. Extremities: No deformities, edema, skin discoloration, clubbing or cyanosis. Good capillary refill. ASSESSMENT/PLAN: 1. Anxiety - ICD9: 300.00, ICD10: F41.9 (primary diagnosis) Has attacks for which I am giving her some hydroxazine 2. Depression, unspecified depression type - ICD9: 311, ICD10: F32.9 - FLUOXETINE 20 MG CAPSULE 3. Encounter for gynecological examination without abnormal finding - ICD9: V72.31, ICD10: Z01.419 - Encouraged monthly BSE - Follow up for annual exam in one year. - CONSULT TO GYNECOLOGY 4. SARBJIT (generalized anxiety disorder) - ICD9: 300.02, ICD10: F41.1 5. SVT (supraventricular tachycardia) (HCC) - ICD9: 427.89, ICD10: I47.1 Procedure completed, started her on zoloft and cancelled the prozac because of the caution with arrythmias and prozax lexapro Asked her to report and stop if she feels anything with the zoloft MARIA DE JESUS GRAY MD CNOV Observed: 06/09/2018 Status: COMPLETED Source: [place] 4:00 PM [facility] REPOSITORY Office Visit (INTMWS) QUETA MANDEL ([id number]) 1980 F Date Time Provider Department 06/09/18 4:00 PM MARIA DE JESUS GRAY During your visit today, we recorded the following information about you: Pulse Respiration Blood pressure Weight 88/minute 12/minute 128/70 67.6 kg Height Last Period 1.702 m 05/25/18 MARIA DE JESUS GRAY MD 06/09/2018 5:30 PM Signed Reason for Visit Patient presents with: Establish Care: establish care Queta Mandel is a 38 year old female who presents here today for Above Complaints.. Health Maintenance DTAP,TDAP,TD(1 - Tdap) PAP EVERY 5 YEARS HPV EVERY 5 YEARS HPI Going through a divorce, stressed out, she was started on wellbutrin, but did not like it, she was on cymbalta prior to that. She does feel like she needs something to help her out feels panicked on and off. Has episodes where she feels panicked, all the time when she wakes up , living with her ex due to financial restraints. She is sleeping on the couch a lot. She has a lot of anxiety but not much of depression. Has diarrhea from soft stool. She has seen a therapist for helping her. [place] - had taken adenosine in the past No problem-specific Assessment AND Plan notes found for this encounter. 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 Pertinent Lab/Diagnostic Studies are reviewed and discussed today Current Outpatient Prescriptions: - buPROPion SR (ZYBAN SR; WELLBUTRIN SR) 150 mg 12 hr tablet - fluticasone (FLONASE) 50 mcg/actuation nasal spray - meclizine (ANTIVERT) 25 mg tab - PAROXETINE HCL (PAXIL ORAL) - BENZONATATE (TESSALON ORAL) - dicyclomine (BENTYL) 10 mg capsule - LORAZEPAM ORAL - albuterol HFA (VENTOLIN HFA) 90 mcg/actuation inhaler - codeine-guaiFENesin (ROBITUSSIN AC) 10-100 mg/5 mL syrup - PARoxetine (PAXIL) 40 mg tablet - guaiFENesin (MUCINEX) 600 mg 12 hr tablet - benzonatate (TESSALON PERLE) 100 mg capsule - ACETAMINOPHEN (TYLENOL ORAL) Review of Systems CONSTITUTIONAL: No fevers, chills night sweats, unintended weight loss CARDIOVASCULAR: No chest pain, dyspnea, palpitations, orthopnea, PND, ankle edema. PULM: No dyspnea, unexplained cough. GI: No dysphagia/odynophagia, problematic reflux, constipation, diarrhea, changes in stool habits, hematochezia, melena. : No new urinary complaints, including dysuria, gross hematuria or pyuria. NEURO: No new balance problems, peripheral weakness/paresthesias or numbness of concern. Physical Exam BP 128/70 (BP Site: Left Arm, BP Position: Sitting, BP Cuff Size: Regular Adult) Pulse 88 Resp 12 Ht 170.2 cm (5' 7) Wt 67.6 kg (149 lb) LMP 05/25/2018 (Approximate) SpO2 99% BMI 23.34 kg/m? General appearance: Well appearing, alert, in no acute distress, well nourished. Skin: Skin color, texture, turgor normal, no suspicious rashes or lesions Head: Normocephalic, no masses, lesions, tenderness or abnormalities Eyes: Anicteric sclera. Pupils are equally round and reactive to light. Extraocular movements are intact. Lungs: Lungs clear to auscultation. No wheezing, rhonchi, rales Heart: RRR without murmur, gallop, or rubs. Extremities: No deformities, edema, skin discoloration, clubbing or cyanosis. Good capillary refill. ASSESSMENT/PLAN: 1. Anxiety - ICD9: 300.00, ICD10: F41.9 (primary diagnosis) Has attacks for which I am giving her some hydroxazine 2. Depression, unspecified depression type - ICD9: 311, ICD10: F32.9 - FLUOXETINE 20 MG CAPSULE 3. Encounter for gynecological examination without abnormal finding - ICD9: V72.31, ICD10: Z01.419 - Encouraged monthly BSE - Follow up for annual exam in one year. - CONSULT TO GYNECOLOGY 4. SARBJIT (generalized anxiety disorder) - ICD9: 300.02, ICD10: F41.1 5. SVT (supraventricular tachycardia) (HCC) - ICD9: 427.89, ICD10: I47.1 Procedure completed, started her on zoloft and cancelled the prozac because of the caution with arrythmias and prozax lexapro Asked her to report and stop if she feels anything with the zoloft MD MARIA DE JESUS RAYO MD 06/09/2018 5:09 PM Edited She [place] Referring Provider: SELF [200] Allergies As of Date: 06/09/2018 Noted Allergy Reaction SULFA (SULFONAMIDE ANTIBIOTICS) 09/25/2010 16 - Unknown ZITHROMAX (AZITHROMYCIN) 09/25/2010 8 - GI Upset Date Reviewed: 12/30/2017 Reviewed by: Mikey ([facility]) - Fully Assessed Reason for Visit: Establish Care [42] Cmt: establish care Primary Visit Diagnosis:Anxiety [F41.9] Other Visit Diagnoses:Depression, unspecified depression type [F32.9] Encounter for gynecological examination without abnormal finding [Z01.419] SARBJIT (generalized anxiety disorder) [F41.1] SVT (supraventricular tachycardia) (HCC) [I47.1] Genital herpes simplex, unspecified site [A60.00] Order(s):CONSULT TO GYNECOLOGY [9013] Order #: [id number]: 1 hydrOXYzine HCl (ATARAX) 25 mg tabletTake 1 tablet by mouth every 4 hours as needed.Disp: 45 tabletRfl: 1 sertraline (ZOLOFT) 50 mg tabletTake 1 tablet by mouth once daily.Disp: 45 tabletRfl: 3 acyclovir (ZOVIRAX) 400 mg tabletTake 1 tablet by mouth twice daily.Disp: 60 tabletRfl: 11 Prescriptions as of 06/09/2018 Sig: HYDROXYZINE HCL 25 MG TABLET Take 1 tablet by mouth every * SERTRALINE 50 MG TABLET Take 1 tablet by mouth once d* ACYCLOVIR 400 MG TABLET Take 1 tablet by mouth twice * FLUTICASONE 50 MCG/ACTUATION * Use 2 Sprays in each nostril * MECLIZINE 25 MG TABLET Take 1 tablet by mouth every * TESSALON ORAL Take by mouth. DICYCLOMINE 10 MG CAPSULE Take 1 capsule by mouth four * LORAZEPAM ORAL Take by mouth. ALBUTEROL SULFATE HFA 90 MCG/* Inhale 2 Puffs as instructed * CODEINE 10 MG-GUAIFENESIN 100* Take 5-10 mL by mouth four ti* GUAIFENESIN ER 600 MG TABLET,* Take 2 tablets by mouth twice* BENZONATATE 100 MG CAPSULE Take 1 capsule by mouth three* TYLENOL ORAL Take by mouth. Problem List As Of Date 06/09/2018 Noted Resolved Depression [F32.9] INVALID FOR* SARBJIT (generalized anxiety disorder) [F41.1] INVALID FOR* SVT (supraventricular tachycardia) ([facility]) [I47.1]INVALID FOR* More... Prescriptions ordered this encounter Disp Refills Start End FLUOXETINE 20 MG CAPSULE 30 c* 3 06/09/2018 06/09/2018 Route: ORAL Sig: Take 1 capsule by mouth once daily. HYDROXYZINE HCL 25 MG TABLET 45 t* 1 06/09/2018 Route: ORAL Sig: Take 1 tablet by mouth every 4 hours as needed. SERTRALINE 50 MG TABLET 45 t* 3 06/09/2018 Route: ORAL Sig: Take 1 tablet by mouth once daily. ACYCLOVIR 400 MG TABLET 60 t* 11 06/09/2018 Route: ORAL Sig: Take 1 tablet by mouth twice daily. Medications Discontinued During This Encounter PARoxetine (PAXIL) 40 mg tablet 06/09/2018 Class: Historical Med Route: ORAL Sig: Take 40 mg by mouth once daily. Disc: Reason for discontinue is not on file. PAROXETINE HCL (PAXIL ORAL) 06/09/2018 Class: Historical Med Route: ORAL Sig: Take by mouth. Disc: Reason for discontinue is not on file. buPROPion SR (ZYBAN SR; WELLBUTRIN S* 06/09/2018 Class: Historical Med Route: ORAL Sig: Take 150 mg by mouth twice daily. Disc: Reason for discontinue is not on file. FLUoxetine (PROZAC) 20 mg capsule 30 c* 3 06/09/2018 06/09/2018 Route: ORAL Sig: Take 1 capsule by mouth once daily. Disc: Reason for discontinue is not on file. Encounter Status:Closed by MARIA DE JESUS GRAY MD on 06/09/18 EP PROCEDURE - Observed: 04/29/2018 Status: F Source: [facility] EPS/ABLATION/DEVICE 10:07 AM [facility] REPOSIT[facility] Queta Mandel is a 38 y.o. female with a history of SVT/palpitations who was referred for EPS+/-RFA. ECG showed sinus rhythm . EF by echo is wnl. The patient arrived to the EP laboratory in sinus rhythm. Mapping was performed of the RA free wall, the RA septal region and the coronary sinus. By pacing and mapping from the RA free wall, RV, the m echanism of the tachycardia was confirmed to be ORT via lateral accessory pathway. Tachycardia easily induced by AOP - Long VA tachycardia with low-high A sequence; VAV response to VOP with entrainment ruled out Atrial tachycardia ; PPI-TCL > 115 and SA-VA > 85 ruled out septal pathway. His refractory PVCs with no impact on next A. However, placing catheter in CS showed eccentric activation and pathway bracketed around 2 O'clock in the annulus. Transseptal was done using fluoroscopy. ICE not used. Ca rto 3D was used for mapping. With ablation, tachycardia terminated in ~2 seconds. Repeat testing up to 20 minutes after the last ablation lesion did not induce any further tachycardia. Adenosine 18 mg IV given during repeat testing with V-pacing showed no VA conduction during AV block phase. Septal A was the earliest A Post ablation, there was normal SA, AV and HV. Conclusions: 1. Baseline rhythm is sinus rhythm 2. Normal sinus node function. 3. Normal AV node function, normal infranodal conduction (HV= 42 ms). 4. Accessory pathway present as above 5. No evidence of dual AV node physiology 6. VA conduction present, concentric, decremental 7. Easily inducible SVT at baseline as above - none induced post ablation 8. No VT induced Recommends: 1. Routine sheath care 2. Bedrest for 2-3 hours 3. Stop metoprolol if no other indication other than SVT 4. F/U with Dr. Morel *ACT* LOW RANGE, Collected: 04/23/2018 Status: F Source: [facility] POC 5:59 PM [facility] REPOSITORY TYPE CODE TESTS RESULT OUT OF REFERENCE UNITS RANGE LAB ACTLR 89-169 sec High *ACT* LOW 279 RANGE, POC *ACT* LOW RANGE, Collected: 04/23/2018 Status: F Source: [facility] POC 5:42 PM [facility] REPOSITORY TYPE CODE TESTS RESULT OUT OF REFERENCE UNITS RANGE LAB ACTLR 89-169 sec High *ACT* LOW 335 RANGE, POC CBC,PLATELET,DIFFERENTIAL - CCL Collected: Status: F Source: [facility] 04/23/2018 11:28 [facility] REPOSITORY TYPE CODE TESTS RESULT OUT OF REFERENCE UNITS RANGE LAB WBC 3.98-10.04 K/uL WBC Count 8.05 LAB RBC 3.93-5.22 M/uL RBC Count 4.54 LAB HGB 11.2-15.7 g/dL Hemoglobin 13.7 LAB HCT 34.1-44.9 % Hematocrit 39.7 LAB MCV 79.4-94.8 fL Mean Cell 87.4 Volume LAB MCH 25.6-32.2 pg Mean Cell 30.2 Hgb LAB MCHC 32.2-35.5 g/dL Mean Cell 34.5 Hgb Conc LAB RDW 11.7-14.4 % RBC 12.7 Distribution LAB PLT 182-369 K/uL Platelet 306 Count LAB MPV 9.4-12.3 fL Mean 10.3 Platelet Volume LAB NRBC 0.0-0.2 /100 WBC NUCLEATED 0.0 RBC LAB DTYPE Electronic DIFFERENTIAL TYPE Differential LAB IGRE % IMMATURE 0.4 GRANS % LAB SEGS % NEUTROPHIL 65.8 SEGMENTED LAB LYM % LYMPHOCYTE 26.0 % LAB MON % MONOCYTE % 5.8 LAB EOS % EOSINOPHIL 1.4 % LAB BASO % BASOPHIL % 0.6 LAB IGABS <0.04 K/uL IMMATURE <0.04 GRANS ABSOLUTE LAB SBANS 1.56-6.13 K/uL SEGS + 5.30 Bands,Absolute LAB ALYM 1.18-3.74 K/uL Abs Lymph 2.09 LAB AMONO 0.24-0.86 K/uL Abs Citrus 0.47 LAB AEOS <0.37 K/uL Abs Eos 0.11 LAB ABASO <0.09 K/uL Abs Baso 0.05 Performed By: #### VINCENT, WENDY, CHM7 #### [facility] [address] [place] [address] [facility] [address] [place] [address] PT*PTT Collected: 04/23/2018 Status: F Source: [facility] 11:28 AM [facility] REPOSITORY TYPE CODE TESTS RESULT OUT OF RANGE REFERENCE UNITS LAB PT 11.9-14.2 sec PT 14.0 LAB INR 0.9-1.1 INR 1.1 LAB PTT 24.0-34.3 sec PTT 26.1 Performed By: #### VINCENT, WENDY, CHM7 #### [facility] [address] [place] [address] [address] CHEM 7 Collected: 04/23/2018 Status: F Source: [facility] 11:28 AM [facility] REPOSITORY TYPE CODE TESTS RESULT OUT OF REFERENCE UNITS RANGE LAB BUN 7-22 mg/dL BUN 10 LAB NA 133-143 mmol/L Sodium 140 LAB K 3.5-5.0 mmol/L Potassium 4.0 LAB CL 98-108 mmol/L Chloride 106 LAB CO2 22-30 mmol/L Carbon Dioxide 25 LAB GLUC 70-99 mg/dL Glucose 92 LAB CREA 0.50-1.20 mg/dL Creatinine 0.72 LAB GAP 7-17 mmol/L Anion Gap 13 LAB BC BUN/CREA Ratio 14 LAB OSMC 278-305 mOsm/kg Osmolality 291 (Calc) LAB GFR >60 mL/min/1.73 sqM Est GFR,non >60 Honduran LAB GFRA >60 mL/min/1.73 sqM Est GFR, >60 Performed By: #### CBCELVIS, WENDY, CHM7 #### [facility] [address] [place] [address] [address] BASIC METABOLIC Collected: 02/18/2018 Status: F Source: [facility] PROFILE (BMP) 4:13 PM [facility] REPOSITORY TYPE CODE TESTS RESULT OUT OF RANGE REFERENCE UNITS LAB L501.0100 74-106 mg/dL Normal GLU 88 Result Comment: Please note revised GLUCOSE reference range effective 2017. LAB L501.1000 7-18 mg/dL Normal BUN 11 LAB L501.1100 0.55-1.02 mg/dL Normal CREAT,SERUM 0.80 Result Comment: The validity of the calculated GFR AND GFRAA in patients over 70 years has not been determined. Clinical correlation is essential. LAB L501.1110 >60 mL/min Normal EST GFR 85 Result Comment: Non- GFR Calc LAB L501.1115 >60 mL/min Normal EST GFR - AA 103 Result Comment: GFR Calc LAB L501.1300 10-20 RATIO Normal BUN/CRE 13.7 LAB L501.2200 8.5-10.1 mg/dL CA Normal 9.1 LAB L501.5300 136-145 mmol/L NA Normal 138 LAB L501.5600 3.5-5.1 mmol/L K Normal 4.2 LAB L501.5900 98-107 mmol/L CL Normal 104 LAB L501.6100 21.0-32.0 mmol/L Normal CO2 28.0 LAB L501.6200 5-15 Normal GAP 6 Performed By: #### L500.2500, L501.5200, L501.9520, L100.0100 #### [facility] [address] [facility]. [place], [place], [id number] MAGNESIUM Collected: 02/18/2018 Status: F Source: [facility] 4:13 PM [facility] REPOSITORY TYPE CODE TESTS RESULT OUT OF RANGE REFERENCE UNITS LAB L501.5200 1.6-2.6 mg/dL Normal MG 2.2 Result Comment: Please note revised Magnesium reference range effective 2017. Performed By: #### L500.2500, L501.5200, L501.9520, L100.0100 #### [facility] [address] [facility]. [place], [place], [address] THYROID STIM HORMONE Collected: 02/18/2018 Status: F Source: [place] (TSH) 4:13 PM [facility] REPOSITORY TYPE CODE TESTS RESULT OUT OF RANGE REFERENCE UNITS LAB L501.9520 0.358-3.74 uIU/mL Normal TSH 0.66 Performed By: #### L500.2500, L501.5200, L501.9520, L100.0100 #### [facility] [address] [place], [place], [id number] CBC W/DIFF, AUTOMATED Collected: 02/18/2018 Status: F Source: [facility] 4:13 PM [facility] REPOSITORY TYPE CODE TESTS RESULT OUT OF RANGE REFERENCE UNITS LAB L100.1000 4.4-11.0 K/mm3 Normal WBC 6.3 LAB L100.1200 4.2-5.4 M/mm3 Normal RBC 4.54 LAB L100.1300 12.0-15.0 g/dl Normal HGB 13.4 LAB L100.1400 37-47 % Normal HCT 40.5 LAB L100.1500 81-99 fL Normal MCV 89.2 LAB L100.1600 27.0-32.0 pg Normal MCH 29.5 LAB L100.1700 32-36 g/gl Normal MCHC 33.1 LAB L100.1810 11.6-14.6 % Normal RDW CV 12.8 LAB L100.1820 35.1-43.9 fl Normal RDW SD 41.6 LAB L100.1900 150-450 K/mm3 Normal PLT 268 LAB L100.2000 6.2-12.0 fl Normal MPV 10.2 LAB L100.2100 47-70 % Normal NEUT% 67.2 LAB L100.2200 19-41 % Normal LY% 24.9 LAB L100.2300 0-10 % Normal MONO% 5.7 LAB L100.2400 0-5 % Normal EO% 1.4 LAB L100.2500 0-1 % Normal BASO% 0.8 LAB L100.2550 0.0-0.9 % Normal IM GRAN % 0.000 Result Comment: IG% - Immature Granulocytes (promyelocytes, myelocytes and metamyelocytes) > 1% indicates that a LEFT SHIFT is Present. LAB L100.2620 2.0-7.7 X10 3/uL Normal Absolute Neut 4.3 LAB L100.2720 0.83-4.51 X10 3/ul Normal Absolute Lymph 1.58 Performed By: #### L500.2500, L501.5200, L501.9520, L100.0100 #### [facility] [address] [place], [address] CARDIOLOGY VISIT Observed: 02/18/2018 Status: F Source: [facility] REPORT 3:29 PM [facility] REPOSITORY [facility] [address] [place] [address] OFFICE VISIT Date of Service: 02/18/18 MR#: [id number] Acct: [id number] Name: QUETA MANDEL Rep #: [id number] : 1980 Provider: Gerardo Morel MD Age/Sex: 38/F Location: [facility] Status: Signed HPI HPI Chief Complaint: Visit for tachycardia. Details: QUETA MANDEL, is a 38 F who presents to the office today for a post ER visit for tachycardia. As you remember had seen approximately 2 years ago for a narrow complex tachycardia at that time they preferred medical therapy. She done well since then for over a year. A few days ago she had had been at a social event and then after that started noticing her heart racing she did present to the emergency room and was noted to be in a narrow complex tachycardia at a rate of approximately 220 bpm vagal maneuvers were applied and she promptly converted to sinus rhythm. Since then she has had a few episodes where her heart has raced briefly as noted on her Fitbit monitor. She has had no dizziness or diaphoresis no near syncope or syncope or chest pain. You do remember that her last echocardiogram performed a year and a half ago demonstrated ejection fraction of 55% with trivial mitral regurgitation. Her physical exam today demonstrates clear lung blanco regular rate and rhythm and no pedal edema. Intake Vital Signs02/18/18 Height 5 ft 7 in 02/18/18 Weight: 155 lb 02/18/18 Body Mass Index (BMI) 24.3 02/18/18 Blood Pressure 114/78 Intake Visit Reasons: ER 3-25 for SVT Allergies Sulfa (Sulfonamide Antibiotics) Allergy (Verified 02/18/18 15:01) Unknown promethazine [From Phenergan] Adverse Reaction (Intermediate, Verified 02/18/18 15:01) Causes nausea (paradoxical reaction) Medications bupropion HCl SR 150 mg tablet,12 hr sustained-release 150 mg PO BID 02/18/18 [History Confirmed 02/18/18] Ejection fraction %: 55 to 59 PFSH Medical History Migraine (Chronic) Anxiety (Chronic) Depression (Chronic) Supraventricular tachycardia (Acute) Surgical History History of benign neoplasm of breast (Chronic) Family History Mother Negative for ASCVD Father Negative for ASCVD Social History Smoking Status: Never smoker ROS Const Const: Negative for fatigue, weakness, weight gain, weight loss, frequent falls or excessive sweating Eyes Eyes: Negative for change in vision, blurry vision or transient loss of vision ENT ENT: Positive for dizziness (HX Vertigo); negative for balance problems Cardio Chest Pain: No Palpitations: Yes feels like its: fast Edema: None Muscle aches with walking: None Additional Details: Patient reports that she was in ED recently for SVT 215. Patient states that prior to elevated HR she will experience a rushing/flushing sensation. Patient states that she experiences spike of elevated HR throughout the day. Resp Respiratory: Positive for SOB with activity (increased); negative for SOB at rest GI GI: Negative vomiting or vomiting blood/hematemesis : Negative for hematuria Musc Musc: Positive for muscle aches/ myalgia (aching feeling in left hand, started yesterday); negative for balance problems, muscle weakness or joint pain Skin Skin: Negative non-healing lesions or rash Neuro Neuro: Positive for dizziness (HX Vertigo); negative for weakness, blurry vision, lightheadedness, frequent falls or orthostatic symptoms Ángel Hematologic/Lymphatic: Negative for easy bleeding Endo Endo: Negative for fatigue or excessive sweating Psych Psych: Negative for anxiety or depression Allergy Allergy/Immunology: Negative for hives, Negative for rash Cardiology Exam Const Appearance: cooperative, healthy appearing, well developed, well groomed and no acute distress Nutritional Appearance: well nourished and average body habitus Orientation: alert, awake and oriented x3 Head Head: normal to inspection, normocephalic and atraumatic Ears: hearing grossly normal bilaterally and external ears normal Nose: external nose normal, nasal mucous membranes and turbinates normal, nares normal, septum normal, no nasal discharge Face and Sinus: face symmetric Mouth: oral mucosae normal, tongue normal, oropharynx normal and moist mucous membranes Teeth and gingiva: dentition normal Throat: posterior oropharynx normal, tonsils normal and uvula midline Eyes General: appearance normal, both eyes and all related structures Eyelids: eyelids normal Conjunctivae: conjunctivae normal Pupils: PERRL, normal by confrontation and accommodation normal EOM: EOM intact bilaterally Neck Neck: normal visual inspection, trachea midline and no JVD JVD: +5 Carotids: normal carotid upstroke and bounding pulses Chest Chest inspection: normal inspection of the chest, symmetric chest movement and normal respiratory effort Auscultation: Bilateral: Clear to Auscultation Cardio Palpation: normal PMI Rate: regular rate Rhythm: regular rhythm Heart sounds: S1 normal, S2 normal and normal, physiologic split S2; negative rub, gallop or murmur GI GI: normal to inspection, soft, no hepatosplenomegaly and bowel sounds present Neuro General: alert, awake, oriented x3, no focal sensory deficit, gait normal and moves all extremities Skin Skin: no rashes or lesions noted Extremities Pulses: Normal: Right Femoral Pulse, Left Femoral Pulse, Right Dorsalis Pedis Pulse, Left Dorsalis Pedis Pulse, Right Posterior Tibial Pulse, Left Posterior Tibial Pulse, Right Radial Pulse, Left Radial Pulse Lower Extremity Edema: None: Bilateral Musculoskel Musculoskeletal: No joint tenderness Psych Psychological: normal affect Assessment AND Plan 1. 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 I suspect that this would be amenable to ablation I discussed this with her she is willing to proceed. I like to obtain the usual CBC and chemistry as well as thyroid function tests. I do not think there is a reason to repeat her echocardiogram. Electrophysiology service at the [facility] has been contacted and arrangements will be made for an ablation. Thank you for allowing me to participate in the care of your patient. 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) Coding Level of Care Code Off vis,est,level 4 Diagnoses Supraventricular tachycardia I47.1 Coding Level of Care Code Off vis,est,level 4 Diagnoses Supraventricular tachycardia I47.1 02/18/18 1529 <Electronically signed by Gerardo Morel MD> Date Gerardo Mcdonald Signature: Date (if applicable) CC: Cinthia ARECHIGA 12 LEAD ELECTROCARDIOGRAM Observed: 02/09/2018 Status: F Source: [facility] 1:27 PM [facility] REPOSITORY [facility] [address] [place] [address] 12 Lead EKG 02/07/18 0016 MR#: [id number] Acct: [id number] Name: QUETA MANDEL Rep #: [id number] : 1980 38 From: Gerardo Morel MD Attending Dr: Status: DEP ER Ordering Dr: Laya Olmstead MD Date: 02/07/18 Location: ED Sex: F C Admitted: Test Reason : REPEAT Blood Pressure : / mmHG Vent. Rate : 104 BPM Atrial Rate : 104 BPM P-R Int : 162 ms QRS Dur : 110 ms QT Int : 336 ms P-R-T Axes : 045 051 055 degrees QTc Int : 441 ms Sinus tachycardia Otherwise normal ECG Confirmed by ADRIEL STEVENS, GERARDO ([id number]), newspaper photo editor GERRY SURESH ([id number]) on 02/09/2018 1:26:34 PM Referred By: ISHAN Confirmed By:GERARDO MOREL MD 02/09/18 1326 Date Gerardo Morel MD CC: LAYA OLMSTEAD MD; Cinthia ARECHIGA Signed 12 LEAD ELECTROCARDIOGRAM Observed: 02/09/2018 Status: F Source: [facility] 1:27 PM [facility] REPOSITORY [facility] [address] [place] [address] 12 Lead EKG 02/07/18 0004 MR#: [id number] Acct: [id number] Name: QUETA MANDEL Rep #: [id number] : 1980 38 From: Gerardo Morel MD Attending Dr: Status: DEP ER Ordering Dr: Laya Olmstead MD Date: 02/07/18 Location: ED Sex: F C Admitted: Test Reason : PALPITATIONS Blood Pressure : / mmHG Vent. Rate : 215 BPM Atrial Rate : 214 BPM P-R Int : 000 ms QRS Dur : 090 ms QT Int : 212 ms P-R-T Axes : 000 053 102 degrees QTc Int : 401 ms Supraventricular tachycardia Marked ST abnormality, possible inferolateral subendocardial injury Abnormal ECG Confirmed by GERARDO MOREL MD ([id number]), newspaper photo editor GERRY SURESH ([id number]) on 02/09/2018 1:26:48 PM Referred By: ISHAN Confirmed By:GERARDO MOREL MD 02/09/18 1326 Date Gerardo Morel MD CC: LAYA OLMSTEAD MD; Cinthia ARECHIGA Signed EMERGENCY DEPARTMENT Observed: 02/07/2018 Status: F Source: [facility] SUMMARY 12:21 AM [facility] Medical Records Department [address] [place] [address] Emergency Department Summary 02/07/18 0015 MR#: [id number] Acct: [id number] Name: QUETA MANDEL Rep #: [id number] : 1980 38 From: Laya Olmstead MD PCP: Cinthia Moscoso Status: PRE ER - ER Visit Summary Date of Service: 02/07/18 Chief Complaint: Palpitations History of Present Illness: The patient is a 38 F was out drinking alcohol with some friends tonight when she suddenly felt herself have racing heartbeat palpitations that feels similar to when she was in SVT last year. Started about 2 hours ago. No lightheadedness or near syncopal episodes. Mild upper chest heaviness and mild dyspnea. No recent illnesses, travel, leg pain or swelling, or injury. Physical Examination: Tachycardic over 200. Otherwise vital signs are unremarkable. Keenly alert, conversive, nontoxic and well-appearing. Lungs are clear. Equal pulses bilateral upper extremities. No calf pain/tenderness or pedal edema. Test Results: EKG consistent with narrow complex SVT at 215. No acute injury pattern. Emergency Department Course and Treatment: Regular vagal maneuver was not effective, but with modified vagal maneuver, she cardioverted without complication. Asymptomatic after cardioversion. Repeat EKG is normal with a sinus rhythm at 104 in no acute ischemic abnormalities. Observed without recurrence. Treatment Plan: Cardiology follow-up after the weekend Disposition: Discharge home Impression: Supraventricular tachycardia This note was generated with [employer] dictation software. It may contain incorrect words, spelling, and punctuation that were not noted in review of the chart prior to signing ED Disposition - Plan for ED Patient: Disposition: Home or Assisted Living Chief Complaint: Palpitations Instructions: ED Tachycardia Pat PSVT Referrals: Gerardo Morel MD [STAFF PHYSICIAN] - 5-7 Days What to do if you have Problems For any increased pain, shortness of breath, bleeding, nausea or vomiting, chest pain, or any unexpected problems, contact your Primary Care Provider. Call [facility] ([phone]) or report to the closest Emergency Room. Call 911 if necessary. 02/07/18 0021 <Electronically signed by Laya Olmstead MD> Date Laya Olmstead MD Cosigner Signature (If Indicated): Date CC: Gerardo Morel MD; Cinthia ARECHIGA PROGRESS Observed: 12/30/2017 Status: COMPLETED Source: [facility] 8:06 PM [facility] REPOSITORY HNO ID: [id number] Author: Mikey Saab Service: (none) Author Type: Nurse Practitioner Type: Progress Notes Filed: 12/30/2017 9:03 PM Note Text: HPI HPI Queta Mandel is a 37 year old female who presents today for CC of nasal congestion, positional dizziness, ear ringing. This started 3 days ago. Has tried nothing for relief. Symptoms are worsened by nothing. Risk factors multiple sick family members at home. Recently started wellbutrin, concerned symptoms may be d/t this new med. Review of Systems Constitutional: Negative for chills, fever and weight loss. HENT: Positive for congestion and ear pain. Negative for ear discharge, nosebleeds and sore throat. Respiratory: Negative for cough, shortness of breath and wheezing. Musculoskeletal: Negative for neck pain. Skin: Negative for itching and rash. PAST MEDICAL HISTORY Diagnosis Date - NEGATIVE MEDICAL HISTORY PAST SURGICAL HISTORY Procedure Laterality Date - PAST SURGICAL HISTORY OF Right breast biopsy ( benign) ALLERGIES Sulfa (Sulfonamide Antibiotics); Zithromax [Azithromycin] MEDICATIONS buPROPion SR (ZYBAN SR; WELLBUTRIN SR) 150 mg 12 hr tablet Take 150 mg by mouth twice daily. fluticasone (FLONASE) 50 mcg/actuation nasal spray Use 2 Sprays in each nostril once daily. Rinse mouth after use. meclizine (ANTIVERT) 25 mg tab Take 1 tablet by mouth every 6 hours as needed (dizziness). PAROXETINE HCL (PAXIL ORAL) Take by mouth. BENZONATATE (TESSALON ORAL) Take by mouth. dicyclomine (BENTYL) 10 mg capsule Take 1 capsule by mouth four times daily as needed (stomach cramping). LORAZEPAM ORAL Take by mouth. albuterol HFA (VENTOLIN HFA) 90 mcg/actuation inhaler Inhale 2 Puffs as instructed every 4 hours as needed for Wheezing/Shortness of Breath (persistent cough). codeine-guaiFENesin (ROBITUSSIN AC) 10-100 mg/5 mL syrup Take 5-10 mL by mouth four times daily as needed for Cough. May cause drowsiness. PARoxetine (PAXIL) 40 mg tablet Take 40 mg by mouth once daily. guaiFENesin (MUCINEX) 600 mg 12 hr tablet Take 2 tablets by mouth twice daily. benzonatate (TESSALON PERLE) 100 mg capsule Take 1 capsule by mouth three times daily as needed. ACETAMINOPHEN (TYLENOL ORAL) Take by mouth. 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 rate 16, weight 68.9 kg (152 lb). Physical Exam Constitutional: She is oriented to person, place, and time and well-developed, well-nourished, and in no distress. Non-toxic appearance. She does not have a sickly appearance. No distress. HENT: Head: Normocephalic and atraumatic. Right Ear: Hearing, external ear and ear canal normal. Tympanic membrane is bulging (mild). Left Ear: Hearing, external ear and ear canal normal. Tympanic membrane is bulging (mild). Nose: Nose normal. Mouth/Throat: Uvula is midline, oropharynx is clear and moist and mucous membranes are normal. Clear fluid behind bilat tm Eyes: Conjunctivae and lids are normal. Pupils are equal, round, and reactive to light. Right eye exhibits no discharge. Left eye exhibits no discharge. No scleral icterus. Neck: Trachea normal and normal range of motion. Neck supple. Cardiovascular: Normal rate, regular rhythm and normal heart sounds. Pulmonary/Chest: Effort normal and breath sounds normal. Lymphadenopathy: She has no cervical adenopathy. Neurological: She is alert and oriented to person, place, and time. She has intact cranial nerves. Gait normal. Skin: No rash noted. She is not diaphoretic. ASSESSMENT/PLAN: 1. Dysfunction of both eustachian tubes - ICD9: 381.81, ICD10: H69.83 (primary diagnosis) Will try fluticasone, f/u with pcp if symptoms persist/worsen - FLUTICASONE 50 MCG/ACTUATION NASAL SPRAY,SUSPENSION 2. BPPV (benign paroxysmal positional vertigo), unspecified laterality - ICD9: 386.11, ICD10: H81.10 Likely d/t ETD Concerned are raised that d/t new medication wellbutrin, if symptoms persist could be contributing. - MECLIZINE 25 MG TABLET Prescription instructions reviewed with patient as applicable. Patient advised if symptoms do not improve or if symptoms worsen sooner, to contact the office for further evaluation by their primary care physician. Potential red flag symptoms discussed with the patient. Reviewed appropriate action plan to take if red flag symptoms occur. Patient agreeable to treatment plan. Mikey Saab CNP ALLERGIES ALLERGIES DATE TYPE / CODE NAME / CODE REACTION SEVERITY SOURCE 12/08/2018 Drug Sulfa (Sulfonamide Unknown Unknown [facility] Allergy/416 Antibiotics)/Y64639 Community 393380(SNOM 0491(RXNORM) Hospital ED CT) Repository 12/08/2018 Drug promethazine/L74873 Causes nausea [place] Allergy/416 4459(RXNORM) (paradoxical Community 126579(SNOM reaction) Hospital ED CT) Repository 09/25/2010 Drug SULFA (SULFONAMIDE UNKNOWN [facility] Class/55626 ANTIBIOTICS) Main [place] 1003(SNOMED Repository CT) 09/25/2010 DRUG AZITHROMYCIN GI UPSET [facility] INGREDI/419 Main [place] 502813(SNOM Repository ED CT) ENCOUNTERS ENCOUNTERS ADMIT/DISCHARGE ACCOUNT NUMBER ADMITTING ENCOUNTER LOCATION SOURCE CLASS 12/10/2018/12/14/19 [id number] Ambulatory [address] Repository 12/08/2018/12/08/19 [id number] Emergency [address] ding:ED Repository 11/25/2018 [id number] Ambulatory [facility] ding:MASS Repository 08/10/2018 [id number] Ambulatory Building:[facility] Repository 07/29/2018/07/30/20 [id number] Ambulatory [address] Main [place] Repository 06/09/2018/06/10/20 [id number] Ambulatory [address] [place] Repository 04/23/2018/04/23/20 [id number] IZZY ORTA Ambulatory Building:[address] RSSRoom: [facility] Repository 02/18/2018 [id number] Ambulatory [facility] ding:PSN Repository 02/18/2018 [id number] Ambulatory BMSBuilding: [facility] Repository 02/18/2018/02/19/20 [id number] Ambulatory BMSBuilding: [address] Repository 02/07/2018/02/08/20 [id number] Emergency [place] [facility] ding:ED Repository 01/19/2018 [id number] Ambulatory BMSBuilding: [place] [facility] Repository 12/30/2017/12/30/19 [id number] Ambulatory [address] Repository PAYERS PAYERS ENCOUNTER GUARANTOR PAYER SUBSCRIBER SOURCE 12/08/2018 QUETA A Primary QUETA A [place] [address] Insurance[facility] CHOREYDOB: [address], Number: [id number] [facility] [address]Kyw: [id number] Repository Date:[id number] [address]OX () [id number], [place] [address]NB: 12/08/2018 Secondary Tonio Sanchez [place] Insurance:MEDICAL ChoreyDOB: [facility] [id number] [facility] Number: Repository [id number] Date:[id number] [address] [place] [id number]: 12/08/2018 Tertiary NOT GIVENUNK [place] Insurance:SELF PAY [facility] Number: Effective Repository Date:2018-12-08 11/25/2018 QUETA A Primary NOT GIVENUNK [facility] [id number] Insurance:SELF PAY [facility] Number: Effective [facility]ository [facility] Date:2018-11-10 [id number]: () 08/10/2018 QUETA A Primary QUETA A [facility] CHOREYDOB: Insurance:[facility] CHOREYDOB: [place] Number: [id number] [facility] [id number] [address] [place] [address] Date:[id number] [facility] Repository [place] Name:[facility] [place], [place] [address]Zjt: [phone]: () [phone] () 04/23/2018 QUETA A Primary QUETA A [facility] CHOREYDOB: [facility] [place] Number: [id number] [facility] [employer]AR[employer]EEK [id number] [address] [place] [address] Date:1112-52-99Bpgl [facility] Repository RYANBONI BARTLETT Name:MANAGED CARE HOLLYBONI BARTELTT [address]Npy: [phone]: () [phone] () 02/18/2018 QUETA A Primary QUETA A [place] [id number] Insurance:MEDICAL CHOREYDOB: [id number] Number: [place]ository [place] [id number]: ([phone]) Date:1243-30-89NR [phone] () [address] [place] [phone]: 02/18/2018 Secondary NOT GIVENUNK Heriberto Insurance:SELF PAY [facility] Number: Effective Repository Date:2018-02-18 02/18/2018 QUETA A Primary QUETA A [place] [id number] Insurance:MEDICAL CHOREYDOB: [facility] [id number] Number: Repository boni HAMMOND [id number]: ([phone]) Date:5423-47-73FD [phone] () [address] [place] [phone]: 02/18/2018 Secondary NOT GIVENUNK [place] Insurance:SELF PAY [facility] Number: Effective Repository Date:2018-02-18 02/18/2018 QUETA A Primary QUETA A [place] [id number] Insurance:MEDICAL CHOREYDOB: [facility] [id number] Number: Repository [place] [id number]: ([phone]) Date:2517-82-70JR [phone] () [address] [phone]: 02/18/2018 Secondary NOT GIVENUNK Heriberto Insurance:SELF PAY [facility] Number: Effective Repository Date:2018-02-18 02/07/2018 QUETA A Primary QUETA Dailey Heriberto [id number] Insurance:MEDICAL CHOREYDOB: [facility] [id number] Number: Repository [place], [place] [id number]: (330) Date:3465-89-54CR [phone] () [address], [place] [phone]: 02/07/2018 Secondary NOT GIVENUNK Heriberto Insurance:SELF PAY [facility] Number: Effective Repository Date:2018-02-07 01/19/2018 QUETA A Primary NOT GIVENUNK [place] [id number] Insurance:SELF PAY [place] Number: Effective Repository [id number]: ([phone]) Date:2017-12-25 [phone] ()
== END 2018-12-08 17:17 | disposition home or self-care (01) ==
PROVIDERS: Emergency Provider Emergency Medicine; Family Provider Family Medicine; PCP Family Medicine
DX: J02.0 Streptococcal pharyngitis (principal); R05 Cough
CPT/HCPCS: 71046; 87880; 99283

== ENCOUNTER → 2019-02-15 14:11 | Outpatient (CLI) | payer OTHER, SELFPAY ==
[2019-02-15 15:17] VITALS: BMI 20.3
[2019-02-16 14:58] LABS: Color, Urine Yellow (Yellow); Glucose, Dipstick Normal (Normal); Ketone-Dipstick Negative (Negative); Leukocyte Esterase-Dipstick 100 /ul (Negative); Nitrite-Dipstick Negative (Negative); Occult Blood-Urine 150 /ul (Negative); Protein-Dipstick 15 mg/dl (Negative); Specific Gravity, Urine 1.025 (1.002-1.030); Urine Clarity Cloudy (Clear); Urine Urobilinogen Normal (Normal)
[2019-02-16 15:00] LABS: Urine Bilirubin Dipstick 1 mg/dL (Negative)
[2019-02-16 15:05] LABS: Mucous, Urine 2+ /hpf (<or=2+); Squamous Epithelial Cells - UA 10-25 SEEN /hpf (5-10)
[2019-02-16 15:07] LABS: White Blood Cells 10-25 SEEN /hpf (0-5)
[2019-02-16 15:08] LABS: Bacteria 1+ /hpf (None Seen); Calcium Oxalate Crystals Ur 1+ /hpf (<or=2+); Red Blood Cells-Urine 10-25 SEEN /hpf (0-5)
== END ==
PROVIDERS: Family Provider Family Medicine; PCP Family Medicine; Referring Provider Physician Assistant Surgical; Visit Provider Physician Assistant Surgical
DX: R30.0 Dysuria (principal)
CPT/HCPCS: 81001; 87086; 87088

== ENCOUNTER → 2020-10-04 13:13 | Outpatient (CLI) | payer OTHER, SELFPAY ==
[2019-02-15 15:17] VITALS: BMI 20.3
--- NOTE | 2020-10-04 13:18 | RAD_ITS ---
STUDY: X-RAY - THORACIC SPINE REASON FOR EXAM: Female, 40 years old. PAIN IN CERVICAL SPINE, ALSO IN HER UPPER BACK FOR ABOUT 2 WEEKS NOW. NO KNOWN INJURY. TECHNIQUE: 3 view(s) of the thoracic spine were obtained. COMPARISON: None. FINDINGS: Normal kyphosis of the thoracic spine. There is no substantial scoliosis. Normal thoracic vertebrae and endplates. Normal disc space heights. The soft tissue structures are unremarkable. RAD/Thoracic Spine 3 Views IMPRESSION: Normal x-ray examination of the thoracic spine. Electronically Signed: John Palma MD at 17:16 EST Tel , Service support ,
--- NOTE | 2020-10-04 13:23 | RAD_ITS ---
STUDY: X-RAY - CERVICAL SPINE REASON FOR EXAM: Female, 40 years old. PAIN IN CERVICAL SPINE, ALSO IN HER UPPER BACK FOR ABOUT 2 WEEKS NOW. NO KNOWN INJURY. TECHNIQUE: 5 view(s) of the cervical spine were obtained. COMPARISON: None FINDINGS: Normal anterior atlantoaxial articulation. Normal odontoid process. There is reversal of the normal cervical lordosis. Normal vertebral bodies and endplates. Normal disc space heights. Normal visualized intervertebral neuroforamina. The soft tissue structures are unremarkable. RAD/Cerv Spine 4 or 5 Views IMPRESSION: 1. No fracture or subluxation. 2. Reversal of the normal lordotic curvature possibly from muscular spasm. Electronically Signed: John Palma MD at 17:16 EST Tel , Service support ,
== END ==
PROVIDERS: PCP Family Medicine; Referring Provider Family Medicine; Visit Provider Family Medicine
DX: M54.2 Cervicalgia (principal); M54.6 Pain in thoracic spine
CPT/HCPCS: 72050; 72072

== ENCOUNTER 2021-02-20 16:31 | Outpatient (RCR) | payer OTHER, SELFPAY ==
[2019-02-15 15:17] VITALS: BMI 20.3
== END 2021-04-23 23:59 ==
LOC: IMMUN 16:31
PROVIDERS: PCP Family Medicine; Visit Provider Family Medicine
DX: Z23 Encounter for immunization (principal)
CPT/HCPCS: 0002A; 91300

== ENCOUNTER → 2021-05-28 11:25 | Outpatient (CLI) | payer OTHER, SELFPAY ==
[2019-02-15 15:17] VITALS: BMI 20.3
[2021-05-28 15:40] LABS: Progesterone Level 9.34 ng/mL (See Comment)
[2021-05-28 15:40] LABS: Estradiol 125.1 pg/mL
== END ==
PROVIDERS: PCP Family Medicine; Referring Provider Family Medicine; Visit Provider Family Medicine
DX: G47.00 Insomnia, unspecified (principal)
CPT/HCPCS: 36415; 82670; 84144